=== PATIENT | male | born 1960 ===

== ENCOUNTER 2024-09-21 07:30 | Inpatient (IN) | payer OTHER ==
[~2024-09-21] VITALS: Ht 180.3 cm; Wt 99.8 kg
[2024-09-21] MEDS ORDERED: VALSARTAN320 MG PO (08:32)
[2024-09-21] MEDS ORDERED: CARVEDILOL ER40 MG (08:32)
[2024-09-21] MEDS ORDERED: NIFEDIPINE20 MG (08:32)
[2024-09-21] MEDS ORDERED: LIPITOR40 M1 PO (08:33)
[2024-09-21] MEDS ORDERED: FENOFIBRATE50 MG (08:33)
[2024-09-21] MEDS ORDERED: ECOTRIN81 MG PO (08:34)
[2024-09-21] MEDS ORDERED: ACTOS30 MG PO (08:34)
[2024-09-21] MEDS ORDERED: METFORMIN HCL500 MG (08:35)
[2024-09-21] MEDS ORDERED: LASIX20 MG PO (08:35)
[2024-09-21] MEDS ORDERED: TRIFLUOPERAZINE2 MG PO (08:36)
[2024-09-21] MEDS ORDERED: CLONAZEPAM0.125 MG (08:36)
[2024-09-21] MEDS ORDERED: HUMULIN N100 UNIT/2 (08:37)
[2024-09-21] MEDS ORDERED: TRAZODONE HCL150 MG (08:37)
[2024-09-21 09:00] LABS: URINE APPEARANCE Clear; URINE BILIRRUBIN Negative (NEGATIVE); URINE BLOOD Negative; URINE COLOR Yellow; URINE GLUCOSE Negative (NEGATIVE); URINE KETONE Negative (NEGATIVE); URINE LEUKOCYTE Trace; URINE NITRATE Negative; URINE PROTEIN Negative (NEGATIVE); URINE UROBILINOGEN 0.2 E.U./dl
[2024-09-21 09:04] LABS: URINE BACTERIA 9.7 uL (0.0-1933); URINE EPITHELIAL CELLS 1.7 uL (0.0-38.8); URINE RBC 4.7 uL (0.0-20.8); URINE WBC 7.2 uL (0.0-23.2)
[2024-09-21 09:08] LABS: HEMATOCRIT 43.4 % (39.0-48.0); HEMOGLOBIN 13.9 g/dL (13-16.00); MEAN CELL VOLUME 80.6 fL (80.0-100.00); MEAN CORPUSCULAR HEMOGLOBIN 25.8 pg (27.00-32.0); PLATELET COUNT 421 K/uL (150-450); RED BLOOD COUNT 5.38 M/uL (4.00-6.00); RED CELL DISTRIBUTION WIDTH 14.4 % (11.5-14.5)
[2024-09-21 09:12] VITALS: BP 146/86
[2024-09-21 09:21] LABS: INR 0.99; PARTIAL THROMBOPLASTIN TIME 27.5 SECONDS (22.0-34.0); PROTHROMBIN TIME 10.8 SECONDS (9.0-11.5)
[2024-09-21 09:48] LABS: CALCIUM 10.5 mg/dL (8.5-10.1); CREATININE SERUM 1.15 mg/dL (0.70-1.30); GFR 63.82; POTASSIUM 4.58 mEq/L (3.5-5.1)
[2024-09-21 10:34] LABS: RH POSITIVE
[2024-09-27] MEDS ORDERED: CEFAZOLIN SODIUM 1,000 MG VIAL IV ONE (10:00)
[2024-09-27] MEDS ORDERED: HEMOSTATIC MATRIX 1 KIT KIT TOP ONE (10:00)
[2024-09-27] MEDS ORDERED: BUPIVACAINE HCL 30 ML VIAL IJ ONE (10:15)
[2024-09-27] MEDS ORDERED: SUGAMMADEX SODIUM 200 MG/2 ML VIAL IV ONE (12:15)
[2024-09-27] MEDS ORDERED: OxyCODONE HCL/APAP UD (PERCOCET) PO PRN (13:30)
[2024-09-27] MEDS ORDERED: MORPHINE SULFATE 4 MG/ML CARTRIDGE IV PRN (13:30)
[2024-09-27] MEDS ORDERED: RINGERS SOLUTION,LACTATED 1,000 ML IV SCH (13:30)
[2024-09-27] MEDS ORDERED: DEXTROSE 50 % IN WATER 0.5 G/ML DISP.SYRIN IV PRN (13:30)
[2024-09-27] MEDS ORDERED: ONDANSETRON HCL 2 MG/ML VIAL IV PRN (13:30)
[2024-09-27] MEDS ORDERED: ENALAPRILAT DIHYDRATE 1.25 MG/ML VIAL IV PRN (13:30)
[2024-09-27] MEDS ORDERED: INSULIN LISPRO 1,000 UNIT/10 ML UNITS SUBCUTANEO PRN (13:30)
[2024-09-27] MEDS ORDERED: MORPHINE SULFATE 4 MG/ML VIAL IV ONE ×2 (14:20→15:05)
[2024-09-27] MEDS ORDERED: POLYETHYLENE GLYCOL 3350 17 GM BLIST.PACK PO SCH (17:00)
[2024-09-27] MEDS ORDERED: CARVEDILOL 25 MG TABLET PO SCH (17:00)
[2024-09-27] MEDS ORDERED: GABAPENTIN 300 MG CAPSULE PO SCH (17:00)
[2024-09-27] MEDS ORDERED: FAMOTIDINE/PF 20 MG/2 ML VIAL IV SCH (21:00)
[2024-09-27] MEDS ORDERED: CEFAZOLIN SODIUM 1,000 MG VIAL IV SCH (21:00)
[2024-09-28 00:40] VITALS: BP 130/69; O2SAT 98
[2024-09-28 06:48] LABS: HEMATOCRIT 34.4 % (39.0-48.0); HEMOGLOBIN 11.5 g/dL (13-16.00); MEAN CELL VOLUME 80.5 fL (80.0-100.00); MEAN CORPUSCULAR HEMOGLOBIN 26.9 pg (27.00-32.0); MEAN CORPUSCULAR HGB CONC 33.4 g/dl (32.0-36.0); PLATELET COUNT 271 K/uL (150-450); RED BLOOD COUNT 4.27 M/uL (4.00-6.00); RED CELL DISTRIBUTION WIDTH 14.6 % (11.5-14.5)
[2024-09-28 07:40] LABS: ALBUMIN 2.6 gm/dL (3.4-5.0); CALCIUM 9.2 mg/dL (8.5-10.1); CREATININE SERUM 1.27 mg/dL (0.70-1.30); GFR 56.91; PHOSPHOROUS 2.8 mg/dL (2.5-4.9); POTASSIUM 4.53 mEq/L (3.5-5.1)
[2024-09-28 08:15] VITALS: BP 153/80; O2SAT 98
[2024-09-28] MEDS ORDERED: NIFEDIPINE 20 MG CAPSULE PO SCH (09:00)
[2024-09-28] MEDS ORDERED: ENOXAPARIN SODIUM 40 MG/0.4 ML SYRINGE SUBCUTANEO SCH (09:00)
== END 2024-09-28 11:33 | disposition home or self-care (01) | DRG 708 ==
LOC: O/R 09-27 05:00 → SURH 09-27 07:30
PROVIDERS: ADMIT Urology; ATTEND Urology
PROC: 8E0W4CZ Robotic Assisted Procedure of Trunk Region, Percutaneous Endoscopic Approach (ICD-10-PCS; 2024-09-27)
PROC: 0VT04ZZ Resection of Prostate, Percutaneous Endoscopic Approach (ICD-10-PCS; principal; 2024-09-27 13:30)
DX: C61 Malignant neoplasm of prostate (principal)
CPT/HCPCS: 55866; S2900

== ENCOUNTER → 2024-10-24 | Outpatient (CLI) | payer OTHER ==
[~2024-10-24] MED LIST: ACTOS30 MG PO; CARVEDILOL ER40 MG; CLONAZEPAM0.125 MG; ECOTRIN81 MG PO; FENOFIBRATE50 MG; HUMULIN N100 UNIT/2; LASIX20 MG PO; LIPITOR40 M1 PO; METFORMIN HCL500 MG; NIFEDIPINE20 MG; TRAZODONE HCL150 MG; TRIFLUOPERAZINE2 MG PO; VALSARTAN320 MG PO
== END | disposition home or self-care (01) ==
LOC: TOM 07:12
PROVIDERS: ATTEND Urology
DX: C61 Malignant neoplasm of prostate (principal)
CPT/HCPCS: 72194; Q9965